=== PATIENT | female | born 1970 | race American Indian/Alaskan Native ===

== ENCOUNTER 2016-09-28 12:44 | Outpatient (CLI) | payer OTHER ==
--- NOTE | 2016-09-28 14:55 | XRay Report ---
Cervical spine 4 views: History: Right neck radiculopathy. Findings: Normal height of vertebral bodies. Normal height of intervertebral disc. Sclerotic articular surface with anterior osteophyte at C5-C6 suggestive cervical spondylosis. Normal prevertebral soft tissue. Impression: Spondylosis C5-C6.
== END 2016-09-28 12:45 | disposition home or self-care (01) ==
LOC: XRAY 12:44
DX: M47.892 Other spondylosis, cervical region (principal); M54.12 Radiculopathy, cervical region; M25.78 Osteophyte, vertebrae
CPT/HCPCS: 72050